=== PATIENT | male | born 1990 | race Caucasian/White ===

== ENCOUNTER 2017-03-12 04:52 | Emergency (ER) | payer SELFPAY ==
[~2017-03-12] VITALS: Ht 167.6 cm; Wt 103.0 kg
[2017-03-12] MEDS ORDERED: SODIUM CHLORIDE 0.9% 1,000 ML IV ONE (05:09)
[2017-03-12] MEDS ORDERED: LORAZEPAM 2MG/ML CPJ IV ONE (05:15)
[2017-03-12 06:03] LABS: BASOPHILS % 0.8 % (0.0-2.0); EOSINOPHILS % 3.1 % (0.0-5.0); HEMATOCRIT. 43.6 % (42.0-52.0); LYMPHOCYTES % 29.7 % (20.0-50.0); MEAN CORPUSCULAR HEMOGLOBIN 31.8 pg (28.0-32.0); MEAN CORPUSCULAR VOLUME 92.6 fL (80.0-94.0); MEAN PLATELET VOLUME 8.4 fl (7.4-10.4); MONOCYTES % 6.2 % (2.0-8.0); NEUTROPHILS % 60.2 % (40.0-76.0); PLATELET 320 x1000/uL (130-400); RED BLOOD CELL COUNT 4.71 mill/uL (4.7-6.1); RED CELL DISTRIBUTION WIDTH 13.3 % (11.6-14.6)
[2017-03-12 06:06] LABS: CHLORIDE 110 mEq/L (98-107)
[2017-03-12 06:15] LABS: CARBON DIOXIDE 23 mEq/L (21-32); ETHANOL BLOOD 296 mg/dL
[2017-03-12 06:29] LABS: INR 0.9; PARTIAL THROMBOPLASTIN TIME 28.3 sec (24.0-34.0); PROTHROMBIN TIME 9.8 sec
[2017-03-12] MEDS ORDERED: OLANZAPINE 10 MG/VIAL IM ONE (06:30)
[2017-03-12 07:59] LABS: *AMPHETAMINES SCREEN URINE NEGATIVE (NEGATIVE); *BARBITURATES SCREEN URINE NEGATIVE (NEGATIVE); *BENZODIAZEPINES SCREEN URINE NEGATIVE (NEGATIVE); *COCAINE SCREEN URINE NEGATIVE (NEGATIVE); CANNABINOID URINE SCREEN NEGATIVE (NEGATIVE); METHADONE URINE SCREEN NEGATIVE (NEGATIVE); OPIATES URINE SCREEN NEGATIVE (NEGATIVE); PHENCYCLIDINE URINE SCREEN NEGATIVE (NEGATIVE)
[2017-03-12 12:00] VITALS: BP 99/48
== END 2017-03-12 13:08 | disposition home or self-care (01) ==
LOC: ER 04:57
DX: F14.129 Cocaine abuse with intoxication, unspecified (principal); F17.210 Nicotine dependence, cigarettes, uncomplicated; F15.129 Other stimulant abuse with intoxication, unspecified
CPT/HCPCS: 36415; 80053; 80305; 80307; 80329; 85025; 85610; 85730; 93005; 96361; 96374; 96375; 99285; G0482; J2060; J3490; J7030; Z7610

== ENCOUNTER 2017-04-07 02:17 | Emergency (ER) | payer SELFPAY ==
[~2017-04-07] VITALS: Ht 167.6 cm; Wt 118.0 kg
[2017-04-07 02:20] VITALS: BP 140/84
== END 2017-04-07 02:49 | disposition left against medical advice (07) ==
LOC: ER 02:17
DX: T50.901A Poisoning by unspecified drugs, medicaments and biological substances, accidental (unintentional), initial encounter (principal); Z53.21 Procedure and treatment not carried out due to patient leaving prior to being seen by health care provider

== ENCOUNTER 2022-02-22 20:33 | Emergency (ER) | payer MEDICAID ==
[~2022-02-22] VITALS: Ht 172.7 cm; Wt 82.0 kg
[2022-02-22 20:35] VITALS: BP 132/69
== END 2022-02-22 21:51 | disposition left against medical advice (07) ==
LOC: ER 20:33
DX: Z53.21 Procedure and treatment not carried out due to patient leaving prior to being seen by health care provider (principal)

== ENCOUNTER 2022-04-27 15:40 | Emergency (ER) | payer MEDICAID ==
[~2022-04-27] VITALS: Ht 172.7 cm; Wt 85.0 kg
[2022-04-27 15:43] VITALS: BP 143/86
== END 2022-04-27 19:40 | disposition left against medical advice (07) ==
LOC: ER 15:40
DX: Z53.21 Procedure and treatment not carried out due to patient leaving prior to being seen by health care provider (principal); R56.9 Unspecified convulsions

== ENCOUNTER 2022-12-16 14:24 | Emergency (ER) | payer MEDICAID, OTHER ==
[~2022-12-16] VITALS: Ht 172.7 cm; Wt 80.0 kg
[2022-12-16 14:27] VITALS: BP 141/69
[2022-12-16 15:24] LABS: BASOPHILS % 0.7 % (0.0-2.0); EOSINOPHILS % 0.8 % (0.0-5.0); HEMATOCRIT. 42.2 % (42.0-52.0); HEMOGLOBIN. 14.2 g/dL (14.0-18.0); LYMPHOCYTES % 27.1 % (20.0-50.0); MEAN CORPUSCULAR HEMOGLOBIN 30.9 pg (28.0-32.0); MEAN CORPUSCULAR VOLUME 92.1 fL (80.0-94.0); MEAN PLATELET VOLUME 7.7 fl (7.4-10.4); MONOCYTES % 7.4 % (2.0-8.0); PLATELET 292 x1000/uL (130-400); RED BLOOD CELL COUNT 4.58 mill/uL (4.7-6.1); RED CELL DISTRIBUTION WIDTH 14.2 % (11.6-14.6)
[2022-12-16 15:37] LABS: CHLORIDE 111 mEq/L (98-107)
[2022-12-16 16:04] LABS: ETHANOL BLOOD 311 mg/dL
[2022-12-16] MEDS ORDERED: POTASSIUM CHLORIDE 20MEQ TABLET SR PO ONE (16:15)
== END 2022-12-16 17:44 | disposition home or self-care (01) ==
LOC: ER 14:24
DX: F19.10 Other psychoactive substance abuse, uncomplicated (principal); F15.10 Other stimulant abuse, uncomplicated; Z86.59 Personal history of other mental and behavioral disorders
CPT/HCPCS: 36415; 71045; 80053; 80320; 85025; 93005; 99285; G0480

== ENCOUNTER 2023-10-21 15:16 | Emergency (ER) | payer OTHER ==
[~2023-10-21] VITALS: Ht 177.8 cm; Wt 100.0 kg
[2023-10-21 15:23] VITALS: O2SAT 95
[2023-10-21 16:10] LABS: ACETAMINOPHEN < 2 ug/mL (10-30); ALANINE AMINOTRANSFERASE 28 IU/L (10-49); ALBUMIN 4.2 g/dL (3.2-4.8); ASPARTATE AMINOTRANSFERASE 63 IU/L (<34); BILIRUBIN TOTAL 0.3 mg/dL (0.1-1.0); CARBON DIOXIDE 22 mEq/L (21-32); CHLORIDE 111 mEq/L (98-107); ETHANOL BLOOD 288 mg/dL (<10); GLUCOSE 106 mg/dL (70-105); POTASSIUM 4.2 mEq/L (3.5-5.1); PROTEIN TOTAL 7.1 g/dL (6.0-8.3); SODIUM 142 mEq/L (136-145); UREA NITROGEN BLOOD 6 mg/dL (9-23)
[2023-10-21 16:12] LABS: BASOPHILS % 0.9 % (0.0-2.0); EOSINOPHILS % 1.5 % (0.0-5.0); HEMATOCRIT. 36.1 % (42.0-52.0); HEMOGLOBIN. 12.6 g/dL (14.0-18.0); LYMPHOCYTES % 27.8 % (20.0-50.0); MEAN CORPUSCULAR HEMOGLOBIN 33.1 pg (28.0-32.0); MEAN CORPUSCULAR VOLUME 94.5 fL (80.0-94.0); MEAN PLATELET VOLUME 7.1 fl (7.4-10.4); MONOCYTES % 8.4 % (2.0-8.0); NEUTROPHILS % 61.4 % (40.0-76.0); PLATELET 273 x1000/uL (130-400); RED BLOOD CELL COUNT 3.82 mill/uL (4.7-6.1); RED CELL DISTRIBUTION WIDTH 16.2 % (11.6-14.6)
[2023-10-21 16:14] LABS: WHITE BLOOD COUNT 6.2 x1000/uL (4.5-11.0)
[2023-10-21 16:42] VITALS: BP 117/65; PULSE 87; RESP 10; TEMP 97.7
== END 2023-10-21 18:56 | disposition home or self-care (01) ==
LOC: ER 15:16
DX: F10.129 Alcohol abuse with intoxication, unspecified (principal); F14.10 Cocaine abuse, uncomplicated; F15.10 Other stimulant abuse, uncomplicated; F12.10 Cannabis abuse, uncomplicated; Z86.59 Personal history of other mental and behavioral disorders; Y90.8 Blood alcohol level of 240 mg/100 ml or more
CPT/HCPCS: 80053; 80307; 80329; 80320; 85025; 36415; 99283; Z7610; G0480

== ENCOUNTER 2024-02-07 17:23 | Emergency (ER) | payer OTHER ==
[~2024-02-07] VITALS: Ht 172.7 cm; Wt 82.0 kg
[2024-02-07 17:24] VITALS: BP 148/88; PULSE 92; RESP 18; TEMP 98.3; O2SAT 100
[2024-02-07] MEDS ORDERED: SODIUM CHLORIDE 0.9% 1,000 ML IV ONE (17:45)
[2024-02-07] MEDS ORDERED: LORAZEPAM 2MG/ML INJ IV ONE (17:45)
== END 2024-02-07 19:19 | disposition left against medical advice (07) ==
LOC: ER 17:23
DX: R53.1 Weakness (principal); Z53.21 Procedure and treatment not carried out due to patient leaving prior to being seen by health care provider
CPT/HCPCS: J7030

== ENCOUNTER 2024-02-13 14:08 | Emergency (ER) | payer OTHER ==
[~2024-02-13] VITALS: Ht 177.8 cm; Wt 80.0 kg
[2024-02-13] MEDS: SODIUM CHLORIDE 0.9% 1,000 ML IV ONE ×2 (14:30→17:45)
[2024-02-13 15:48] LABS: BASOPHILS % 0.3 % (0.0-2.0); EOSINOPHILS % 0.1 % (0.0-5.0); HEMOGLOBIN. 13.7 g/dL (14.0-18.0); LYMPHOCYTES % 7.4 % (20.0-50.0); MEAN CORPUSCULAR HEMOGLOBIN 32.8 pg (28.0-32.0); MEAN CORPUSCULAR HGB CONC 34.1 g/dL (31.0-37.0); MEAN CORPUSCULAR VOLUME 96.2 fL (80.0-94.0); MEAN PLATELET VOLUME 7.7 fl (7.4-10.4); MONOCYTES % 6.4 % (2.0-8.0); NEUTROPHILS % 85.8 % (40.0-76.0); PLATELET 333 x1000/uL (130-400); RED BLOOD CELL COUNT 4.16 mill/uL (4.7-6.1); WHITE BLOOD COUNT 10.5 x1000/uL (4.5-11.0)
[2024-02-13 15:53] LABS: CHLORIDE 105 mEq/L (98-107); POTASSIUM 3.6 mEq/L (3.5-5.1); SODIUM 140 mEq/L (136-145)
[2024-02-13 15:54] LABS: CALCIUM 8.7 mg/dL (8.7-10.4); CARBON DIOXIDE 24 mEq/L (21-32)
[2024-02-13 15:59] LABS: CREATININE 1.1 mg/dL (0.6-1.3); GLUCOSE 95 mg/dL (70-105); UREA NITROGEN BLOOD 8 mg/dL (9-23)
[2024-02-13 16:00] LABS: ETHANOL BLOOD 164 mg/dL (<10)
[2024-02-13 16:01] LABS: CREATINE KINASE 1101 IU/L (46-171)
[2024-02-13] MEDS: FOLIC ACID 1 MG, THIAMINE HCL 100 MG, MVI, ADULT NO.1 10 ML in DEXTROSE 5% WATER 1,000 ML IV ONE (16:14)
[2024-02-13 17:09] LABS: CLARITY URINE CLOUDY (CLEAR); COLOR URINE YELLOW (YELLOW); GLUCOSE URINE TRACE (NEGATIVE); KETONES URINE TRACE (NEGATIVE); LEUKOCYTE ESTERASE URINE 2+ (NEGATIVE); NITRITE URINE NEGATIVE (NEGATIVE); OCCULT BLOOD URINE NEGATIVE (NEGATIVE); PH URINE 5.5 (4.5-8.0); PROTEIN URINE TRACE (NEGATIVE); SPECIFIC GRAVITY URINE 1.018 (1.005-1.030)
[2024-02-13 17:18] LABS: *AMPHETAMINES SCREEN URINE NEGATIVE (NEGATIVE); *BARBITURATES SCREEN URINE NEGATIVE (NEGATIVE); *BENZODIAZEPINES SCREEN URINE NEGATIVE (NEGATIVE); *COCAINE SCREEN URINE NEGATIVE (NEGATIVE); CANNABINOID URINE SCREEN NEGATIVE (NEGATIVE); ECSTASY MDMA SCREEN URINE NEGATIVE (NEGATIVE); METHADONE URINE SCREEN NEGATIVE (NEGATIVE); OPIATES URINE SCREEN NEGATIVE (NEGATIVE); PHENCYCLIDINE URINE SCREEN NEGATIVE (NEGATIVE)
[2024-02-13 17:26] LABS: BACTERIA URINE 2+; RBC URINE 0-2 /hpf (0-2); SQUAMOUS EPITHELIAL CELL URINE 1+ /lpf (RARE/1+)
[2024-02-13 17:28] LABS: WBC URINE 50-100 /hpf (0-2)
[2024-02-13] MEDS: CEFTRIAXONE 1GM/50ML 50 ML IV NR (17:45)
[2024-02-13] MEDS: LORAZEPAM 2MG/ML INJ IV ONE (18:45)
[2024-02-13] MEDS ORDERED: LORAZEPAM 2MG/ML INJ IV PRN ×2 (19:15→20:30)
[2024-02-13] MEDS ORDERED: ONDANSETRON HCL 4MG/2ML INJ IV PRN (19:15)
[2024-02-13] MEDS ORDERED: IPRATROPIUM/ALBUTEROL 0.5-3(2.5)MG/3ML NEB HHN PRN (19:15)
[2024-02-13] MEDS ORDERED: CLONIDINE 0.1MG TABLET PO PRN (19:15)
[2024-02-13] MEDS ORDERED: MAGNESIUM/ALUMINUM HYDROXIDE/SIMETHICONE 30ML UDC PO PRN (19:15)
[2024-02-13] MEDS ORDERED: DOCUSATE SODIUM 100MG CAPSULE PO PRN (19:15)
[2024-02-13] MEDS ORDERED: GUAIFENESIN 200MG/10ML SUGAR FREE UDC PO PRN (19:15)
[2024-02-13] MEDS ORDERED: ACETAMINOPHEN 325MG TABLET PO PRN ×2 (19:15)
[2024-02-13] MEDS ORDERED: LACTATED RINGERS 1,000 ML IV SCH (19:30)
[2024-02-13 19:42] LABS: ALANINE AMINOTRANSFERASE 125 IU/L (10-49); ALBUMIN 4.4 g/dL (3.2-4.8); ASPARTATE AMINOTRANSFERASE 109 IU/L (<34); BILIRUBIN TOTAL 0.3 mg/dL (0.1-1.0); PROTEIN TOTAL 7.2 g/dL (6.0-8.3)
[2024-02-13 19:45] LABS: BILIRUBIN DIRECT < 0.1 mg/dL (<=3.0)
[2024-02-13 19:52] LABS: FOLIC ACID (FOLATE) SERUM 18.66 ng/mL (>5.38); VITAMIN B12 SERUM 534 pg/mL (211-911)
[2024-02-13 19:59] VITALS: O2SAT 98
[2024-02-13] MEDS: MIDAZOLAM HCL 2 MG/2 ML VIAL IV ONE (19:59)
[2024-02-13] MEDS: THIAMINE HCL 100MG TABLET PO SCH (20:37)
[2024-02-13] MEDS: CHLORDIAZEPOXIDE 25MG CAPSULE PO SCH (20:37)
[2024-02-13] MEDS: FAMOTIDINE 20MG TABLET PO SCH (21:14)
[2024-02-14 00:39] LABS: AMMONIA < 17 uMol/L (<32)
[2024-02-14 00:51] LABS: CREATINE KINASE 1183 IU/L (46-171)
[2024-02-14 00:55] LABS: HEPATITIS B SURFACE ANTIGEN NEGATIVE (Negative)
[2024-02-14 01:16] LABS: HEPATITIS A AB IGM NEGATIVE (Negative); HEPATITIS B CORE AB IGM NEGATIVE (Negative)
[2024-02-14 01:17] LABS: HEPATITIS C AB NON REACTIVE (Neg) (Negative)
[2024-02-14 06:00] VITALS: BP 121/80; PULSE 67; RESP 19; TEMP 98.3
[2024-02-14] MEDS ORDERED: FOLIC ACID 1MG TABLET PO SCH (09:00)
[2024-02-14] MEDS ORDERED: CEFTRIAXONE 1GM/50ML 50 ML IV SCH (18:00)
== END 2024-02-14 07:25 | disposition left against medical advice (07) ==
LOC: ER 14:25 → EDBEDREQ 17:50 → ER 02-14 07:25
DX: M62.82 Rhabdomyolysis (principal); N39.0 Urinary tract infection, site not specified; F10.239 Alcohol dependence with withdrawal, unspecified; F14.90 Cocaine use, unspecified, uncomplicated; F12.90 Cannabis use, unspecified, uncomplicated; F15.90 Other stimulant use, unspecified, uncomplicated; Z20.822 Contact with and (suspected) exposure to COVID-19; Y90.6 Blood alcohol level of 120-199 mg/100 ml
CPT/HCPCS: 80076; 80305; 80048; 81003; 80320; 82550 ×2; 82607; 82746; 82962; 83690; 85025; 87086; 36415; 96368; 96361; 96365; 96366; 96375; 99291; 82140; 87340; 86705; 86709; J0696; J3490 ×2; J2060; J2250; J3411; J7070; J7030; Z7610 ×5; G0480

== ENCOUNTER 2024-03-02 21:33 | Emergency (ER) | payer OTHER ==
[~2024-03-02] VITALS: Ht 172.7 cm; Wt 78.0 kg
[2024-03-02 21:36] VITALS: BP 144/74; PULSE 98; RESP 16; O2SAT 100
[2024-03-02 23:23] LABS: BASOPHILS % 1.7 % (0.0-2.0); EOSINOPHILS % 0.8 % (0.0-5.0); MEAN CORPUSCULAR HEMOGLOBIN 32.4 pg (28.0-32.0); MEAN CORPUSCULAR HGB CONC 33.3 g/dL (31.0-37.0); MEAN CORPUSCULAR VOLUME 97.1 fL (80.0-94.0); MEAN PLATELET VOLUME 6.9 fl (7.4-10.4); MONOCYTES % 7.4 % (2.0-8.0); NEUTROPHILS % 56.1 % (40.0-76.0); PLATELET 380 x1000/uL (130-400); RED BLOOD CELL COUNT 4.01 mill/uL (4.7-6.1); RED CELL DISTRIBUTION WIDTH 15.4 % (11.6-14.6); WHITE BLOOD COUNT 5.8 x1000/uL (4.5-11.0)
[2024-03-02 23:34] LABS: CHLORIDE 106 mEq/L (98-107); POTASSIUM 3.6 mEq/L (3.5-5.1); SODIUM 142 mEq/L (136-145)
[2024-03-02 23:35] LABS: CALCIUM 9.1 mg/dL (8.7-10.4); CARBON DIOXIDE 24 mEq/L (21-32)
[2024-03-02 23:40] LABS: GLUCOSE 101 mg/dL (70-105); UREA NITROGEN BLOOD 6 mg/dL (9-23)
[2024-03-02 23:53] LABS: TROPONIN I HIGH SENSITIVITY < 4 ng/L (3.0-53)
[2024-03-03] MEDS: ACETAMINOPHEN 325MG TABLET PO ONE (00:15)
[2024-03-03 00:41] LABS: ALANINE AMINOTRANSFERASE 19 IU/L (10-49); ETHANOL BLOOD 300 mg/dL (<10)
[2024-03-03 00:42] LABS: ALBUMIN 4.8 g/dL (3.2-4.8); ASPARTATE AMINOTRANSFERASE 30 IU/L (<34); BILIRUBIN DIRECT 0.1 mg/dL (<=3.0); BILIRUBIN TOTAL 0.5 mg/dL (0.1-1.0); PROTEIN TOTAL 7.7 g/dL (6.0-8.3)
[2024-03-03 02:39] LABS: TROPONIN I HIGH SENSITIVITY 4 ng/L (3.0-53)
[2024-03-03 03:26] VITALS: TEMP 98.6
[2024-03-03] MEDS: ACETAMINOPHEN 325MG TABLET PO NR (03:26)
[2024-03-03] MEDS ORDERED: KEPP500 MT (09:09)
[2024-03-03] MEDS ORDERED: FAMO-135 MT (09:09)
== END 2024-03-03 03:33 | disposition home or self-care (01) ==
LOC: ER 21:34
DX: R07.89 Other chest pain (principal); F10.20 Alcohol dependence, uncomplicated; K21.9 Gastro-esophageal reflux disease without esophagitis; F14.10 Cocaine abuse, uncomplicated; F12.10 Cannabis abuse, uncomplicated; F15.10 Other stimulant abuse, uncomplicated; Y90.8 Blood alcohol level of 240 mg/100 ml or more
CPT/HCPCS: 36415; 71045; 80048; 80076; 80320; 83880; 84484; 85025; 93005; 99285; G0480

== ENCOUNTER 2024-03-03 03:39 | Emergency (ER) | payer OTHER ==
[~2024-03-03] VITALS: Ht 170.2 cm; Wt 99.0 kg
[2024-03-03 04:03] VITALS: BP 149/99; PULSE 103; RESP 20; TEMP 98.1; O2SAT 97
[2024-03-03] MEDS ORDERED: KEPP500 MT (09:09)
[2024-03-03] MEDS ORDERED: FAMO-135 MT (09:09)
== END 2024-03-03 06:54 | disposition left against medical advice (07) ==
LOC: ER 03:39
DX: R07.89 Other chest pain (principal); Z53.21 Procedure and treatment not carried out due to patient leaving prior to being seen by health care provider
CPT/HCPCS: 93005; Z7610

== ENCOUNTER 2024-03-03 06:50 | Emergency (ER) | payer OTHER ==
[~2024-03-03] VITALS: Ht 172.7 cm; Wt 100.0 kg
[2024-03-03 06:56] VITALS: O2SAT 95
[2024-03-03] MEDS: MAGNESIUM/ALUMINUM HYDROXIDE/SIMETHICONE 30ML UDC PO STA (08:07)
[2024-03-03] MEDS: FAMOTIDINE 20MG TABLET PO ONE (08:07)
[2024-03-03] MEDS: ONDANSETRON 4MG ODT PO STA (08:07)
[2024-03-03] MEDS: DICYCLOMINE 10 MG/5 ML ORAL SYR PO STA (08:08)
[2024-03-03 08:39] LABS: BASOPHILS % 1.4 % (0.0-2.0); EOSINOPHILS % 0.7 % (0.0-5.0); LYMPHOCYTES % 25.6 % (20.0-50.0); MEAN CORPUSCULAR HEMOGLOBIN 32.3 pg (28.0-32.0); MEAN CORPUSCULAR HGB CONC 33.4 g/dL (31.0-37.0); MEAN CORPUSCULAR VOLUME 96.8 fL (80.0-94.0); MEAN PLATELET VOLUME 7.1 fl (7.4-10.4); NEUTROPHILS % 64.3 % (40.0-76.0); PLATELET 356 x1000/uL (130-400); RED BLOOD CELL COUNT 4.03 mill/uL (4.7-6.1); RED CELL DISTRIBUTION WIDTH 15.5 % (11.6-14.6)
[2024-03-03 08:42] LABS: CHLORIDE 104 mEq/L (98-107); POTASSIUM 3.4 mEq/L (3.5-5.1); SODIUM 141 mEq/L (136-145)
[2024-03-03 08:44] LABS: CALCIUM 9.1 mg/dL (8.7-10.4); CARBON DIOXIDE 23 mEq/L (21-32)
[2024-03-03 08:49] LABS: CREATININE 0.9 mg/dL (0.6-1.3); GLUCOSE 86 mg/dL (70-105); UREA NITROGEN BLOOD 6 mg/dL (9-23)
[2024-03-03 08:50] LABS: ETHANOL BLOOD 156 mg/dL (<10)
[2024-03-03 08:51] LABS: ALANINE AMINOTRANSFERASE 18 IU/L (10-49); ALBUMIN 4.8 g/dL (3.2-4.8); ASPARTATE AMINOTRANSFERASE 28 IU/L (<34); BILIRUBIN DIRECT 0.2 mg/dL (<=3.0)
[2024-03-03 08:52] LABS: BILIRUBIN TOTAL 0.6 mg/dL (0.1-1.0); PROTEIN TOTAL 7.5 g/dL (6.0-8.3)
[2024-03-03] MEDS ORDERED: KEPP500 MT (09:09)
[2024-03-03] MEDS ORDERED: FAMO-135 MT (09:09)
[2024-03-03] MEDS: LEVETIRACETAM 500MG TABLET PO ONE (09:30)
[2024-03-03 09:39] VITALS: BP 127/73; PULSE 91; RESP 20
[2024-03-03] MEDS ORDERED: CHLORDIAZEPOXIDE 25MG CAPSULE PO ONE (09:45)
[2024-03-03] MEDS ORDERED: ONDANSETRON 4MG ODT PO ONE (09:45)
== END 2024-03-03 09:44 | disposition home or self-care (01) ==
LOC: ER 06:50
DX: K29.20 Alcoholic gastritis without bleeding (principal); F10.10 Alcohol abuse, uncomplicated; F14.10 Cocaine abuse, uncomplicated; F12.10 Cannabis abuse, uncomplicated; F15.10 Other stimulant abuse, uncomplicated; F11.10 Opioid abuse, uncomplicated; Z86.59 Personal history of other mental and behavioral disorders; Y90.6 Blood alcohol level of 120-199 mg/100 ml
CPT/HCPCS: 80076; 80048; 80320; 83690; 85025; 36415; 99284; Q0162; G0480

== ENCOUNTER 2024-03-29 18:46 | Emergency (ER) | payer OTHER ==
[~2024-03-29] VITALS: Ht 170.2 cm; Wt 91.0 kg
[~2024-03-29 18:46] MED LIST: FAMO-135 MT; KEPP500 MT
[2024-03-29 18:52] VITALS: BP 154/88; PULSE 88; RESP 16; TEMP 98.8; O2SAT 98
[2024-03-30] MEDS ORDERED: ONDA4TAB50 MT (03:01)
== END 2024-03-29 19:01 | disposition left against medical advice (07) ==
LOC: ER 18:46
DX: R10.9 Unspecified abdominal pain (principal); Z53.21 Procedure and treatment not carried out due to patient leaving prior to being seen by health care provider

== ENCOUNTER 2024-03-29 19:51 | Emergency (ER) | payer OTHER ==
[~2024-03-29] VITALS: Ht 170.2 cm; Wt 79.0 kg
[2024-03-29 19:53] VITALS: O2SAT 98
[2024-03-29 20:15] VITALS: BP 128/69; PULSE 95; RESP 20; TEMP 36.78072; O2SAT 95
[2024-03-29 20:50] LABS: CHLORIDE 110 mEq/L (98-107); POTASSIUM 4.9 mEq/L (3.5-5.1); SODIUM 139 mEq/L (136-145)
[2024-03-29 20:51] LABS: CALCIUM 8.4 mg/dL (8.7-10.4); CARBON DIOXIDE 17 mEq/L (21-32)
[2024-03-29 20:56] LABS: BASOPHILS % 1.2 % (0.0-2.0); CREATININE 1.2 mg/dL (0.6-1.3); DIFFERENTIAL COMMENT 0; GLUCOSE 126 mg/dL (70-105); HEMATOCRIT. 42.5 % (42.0-52.0); HEMOGLOBIN. 13.4 g/dL (14.0-18.0); LYMPHOCYTES % 36.9 % (20.0-50.0); MEAN CORPUSCULAR HEMOGLOBIN 33.2 pg (28.0-32.0); MEAN CORPUSCULAR HGB CONC 31.6 g/dL (31.0-37.0); MEAN CORPUSCULAR VOLUME 105.1 fL (80.0-94.0); MEAN PLATELET VOLUME 8.9 fl (7.4-10.4); MONOCYTES % 9.7 % (2.0-8.0); NEUTROPHILS % 51.2 % (40.0-76.0); PLATELET 84 x1000/uL (130-400); RED BLOOD CELL COUNT 4.04 mill/uL (4.7-6.1); RED CELL DISTRIBUTION WIDTH 16.7 % (11.6-14.6); UREA NITROGEN BLOOD 10 mg/dL (9-23); WHITE BLOOD COUNT 4.9 x1000/uL (4.5-11.0)
[2024-03-29 20:57] LABS: ETHANOL BLOOD 300 mg/dL (<10)
[2024-03-29 20:58] LABS: ALANINE AMINOTRANSFERASE 42 IU/L (10-49); ALBUMIN 4.4 g/dL (3.2-4.8); ASPARTATE AMINOTRANSFERASE 44 IU/L (<34); BILIRUBIN TOTAL 0.3 mg/dL (0.1-1.0); PROTEIN TOTAL 7.1 g/dL (6.0-8.3)
[2024-03-29 20:59] LABS: BETA HYDROXYBUTYRATE 0.3 mMol/L (0.0-0.3)
[2024-03-29] MEDS: SODIUM CHLORIDE 0.9% 1,000 ML IV ONE (21:11)
[2024-03-30] MEDS ORDERED: ONDA4TAB50 MT (03:01)
== END 2024-03-30 03:41 | disposition home or self-care (01) ==
LOC: ER 19:51
DX: F10.129 Alcohol abuse with intoxication, unspecified (principal); F17.200 Nicotine dependence, unspecified, uncomplicated; F14.10 Cocaine abuse, uncomplicated; F12.10 Cannabis abuse, uncomplicated; F15.10 Other stimulant abuse, uncomplicated; F11.10 Opioid abuse, uncomplicated; Z86.59 Personal history of other mental and behavioral disorders; Y90.8 Blood alcohol level of 240 mg/100 ml or more
CPT/HCPCS: 80053; 82010; 80320; 85025; 36415; 71045; 93005; 99285; J7030; G0480

== ENCOUNTER 2024-07-23 03:15 | Emergency (ER) | payer OTHER ==
[~2024-07-23] VITALS: Ht 170.2 cm; Wt 73.0 kg
[~2024-07-23 03:15] MED LIST changes: +ONDA4TAB50 MT
[2024-07-23 03:17] VITALS: O2SAT 99
[2024-07-23 06:38] VITALS: BP 131/77; PULSE 96; RESP 19; TEMP 36.66960; O2SAT 99
[2024-07-23 07:30] LABS: EOSINOPHILS % 1.5 % (0.0-5.0); HEMOGLOBIN. 12.2 g/dL (14.0-18.0); LYMPHOCYTES % 32.3 % (20.0-50.0); MEAN CORPUSCULAR HEMOGLOBIN 30.7 pg (28.0-32.0); MEAN CORPUSCULAR HGB CONC 32.9 g/dL (31.0-37.0); MEAN CORPUSCULAR VOLUME 93.2 fL (80.0-94.0); MEAN PLATELET VOLUME 7.6 fl (7.4-10.4); MONOCYTES % 10.9 % (2.0-8.0); NEUTROPHILS % 54.3 % (40.0-76.0); PLATELET 254 x1000/uL (130-400); RED BLOOD CELL COUNT 3.97 mill/uL (4.7-6.1); RED CELL DISTRIBUTION WIDTH 19.3 % (11.6-14.6); WHITE BLOOD COUNT 5.2 x1000/uL (4.5-11.0)
== END 2024-07-23 08:45 | disposition home or self-care (01) ==
LOC: ER 03:15
DX: R45.851 Suicidal ideations (principal); F19.90 Other psychoactive substance use, unspecified, uncomplicated; K21.9 Gastro-esophageal reflux disease without esophagitis; F14.90 Cocaine use, unspecified, uncomplicated; F15.90 Other stimulant use, unspecified, uncomplicated; F31.9 Bipolar disorder, unspecified; F10.20 Alcohol dependence, uncomplicated; Z59.00 Homelessness unspecified; Z20.822 Contact with and (suspected) exposure to COVID-19; Y90.9 Presence of alcohol in blood, level not specified
CPT/HCPCS: 36415; 80329; 85025; 87426; 99284